=== PATIENT | male | born 1990 | race Caucasian/White ===

== ENCOUNTER 2021-05-08 13:25 | Emergency (ER) | payer MEDICAID, OTHER ==
[~2021-05-08] VITALS: Ht 180.3 cm; Wt 63.6 kg
[2021-05-08] MEDS ORDERED: PRED20TA PO (13:32)
[2021-05-08] MEDS ORDERED: PENI250T2 PO (13:32)
[2021-05-08] MEDS ORDERED: LIDO20SO16 PO (13:32)
[2021-05-08 13:37] VITALS: BP 118/82
== END 2021-05-08 14:09 | disposition home or self-care (01) ==
LOC: ER 13:25
DX: K08.89 Other specified disorders of teeth and supporting structures (principal); Z79.2 Long term (current) use of antibiotics; Z79.899 Other long term (current) drug therapy
CPT/HCPCS: 99283